=== PATIENT | male | born 1980 | race Caucasian/White ===

== ENCOUNTER 2023-06-02 10:25 | Emergency (ER) | payer OTHER, SELFPAY ==
[2023-06-02 10:26] VITALS: BP 103/88; PULSE 89; RESP 18; TEMP 35.5; O2SAT 93; BMI 34.4
--- NOTE | 2023-06-02 10:47 | CT_ITS ---
INDICATION: seizure EXAMINATION: CT BRAIN - CT Head or Brain W/O Contrast Injection TECHNIQUE: Multiple axial images were obtained of the head without intravenous contrast. A radiation dose optimization technique was used for this scan. IV Contrast dosage and agent: None. RADIATION DOSAGE (If Supplied By Facility): CTDIvol = ( 44.99 ) mGy, DLP = ( 812.98 ) mGycm COMPARISON: FINDINGS: BRAIN PARENCHYMA: No intra- or extra-axial hemorrhage. No evidence of acute infarct. No intracranial mass or mass effect. There is preservation of the patel/white matter interface. Posterior fossa structures are unremarkable. CSF SPACES: Appropriate for age. No hydrocephalus. Basal cisterns are patent. CALVARIUM, SKULL BASE, PARANASAL SINUSES AND MASTOID AIR CELLS: Clear. No discrete lytic or blastic abnormalities. ORBITS: Both globes, extraocular muscles, optic nerves and retrobulbar fat appear unremarkable. ASPECTS Score for Acute Strokes: 10 CT/Brain/Head without Contrast IMPRESSION: Negative Brain CT without contrast. Electronically Signed: Osman Loera MD at 11:51 EDT ,
--- NOTE | 2023-06-02 10:48 | EX.ED.DYSGE1 ---
HPI History of Present Illness Chief Complaint: General Illness Informant: patient and PCP Narrative Narrative: 42-year-old male presenting to the emergency department chief complaint of syncope versus seizure. Patient has not been feeling well over the past several days noting lower extremity myalgias and a headache nonproductive cough. He states that last night he was sleeping in another bed from his because he has been ill. Due to cough he decided to take a shower. He states he remembers getting into the shower and before he could adjust the temperature noted that things started to get very black in his field of vision. He states that he found himself starting to lose consciousness but recalled twitching and knocking things over in the shower. He states that he woke up on the ground. No loss of bowel or bladder control. He states he did not bite his tongue. He states that he felt very nauseated after the event. He subsequently went back to bed and slept into this morning when he discussed with his . He took a home COVID-19 test which was positive. He states now he feels very good, much better than the past several days. He notes a slight headache. He states that had he not tested positive for COVID-19 he would have gone to work this afternoon. He has been started on Wellbutrin in the past several months and had his dose increased to 300 mg once a day in the past 5 weeks roughly. He states he also began Ambien. He states that he had a simple febrile seizure when he was a child. [facility] Medical History (Updated 06/02/23 @ 12:[address] Demarco Melgoza DO) Depression Insomnia Allergy/AdvReac Type Severity Reaction Status Date / Time No Known Allergies Allergy Verified 06/02/23 10:26 Social History Smoking Status: Unknown if ever smoked ROS ROS ED ROS Narrative Syncope versus seizure during the night Constitutional Constitutional ED: Denies chills, fever(s) or weight loss Eyes Eyes: Denies blurry vision, change in vision or diplopia ENT ENT ED: Denies ear pain, rhinorrhea or sore throat Cardiovascular Cardiovascular: Reports other; Denies chest pain, orthopnea, palpitations or racing heartbeat Respiratory/Chest Respiratory/Chest: Reports cough; Denies dyspnea or orthopnea Gastrointestinal Gastrointestinal: Reports nausea; Denies abdominal pain, diarrhea or vomiting Genitourinary Genitourinary ED: Denies dysuria, hematuria or urinary frequency Musculoskeletal Musculoskeletal: Reports myalgias; Denies arthralgias, back pain or neck pain Integumentary Denies abscess or rash Neurologic Neurologic: Reports headache(s); Denies weakness Psychiatric Psychiatric: Denies anxiety, depression, suicidal ideation or suicidal thoughts Endocrine Endocrinology: Denies polydipsia, polyphagia or polyuria Allergic/Immunologic Allergic/Immunologic ED: Denies mouth swelling, tongue swelling or urticaria EXAM Physical Exam Const Vital Signs: 06/02/23 10:26 06/02/23 11:03 Temperature 96 F L Temperature Source Temporal Pulse Rate 89 Respiratory Rate 18 Respiratory Effort Normal Non-Labored Respiratory Pattern Normal Blood Pressure 103/88 H Blood Pressure Mean 93 Pulse Ox 93 Oxygen Delivery Method Room Air Positive well nourished and well developed General Appearance ED: well developed HEENT Reports normocephalic, head/scalp atraumatic and moist mucous membranes Eyes PERRL and EOMs intact bilaterally Neck no lymphadenopathy, supple and no JVD Resp normal respiratory effort and clear to auscultation bilaterally Cardio regular rate, regular rhythm and no murmurs GI normal to inspection, nondistended, normoactive bowel sounds and non-tender Palpation: soft Back/Spine no CVA tenderness and normal ROM Extremity normal to inspection General Extremety ED: Negative for edema General Extremity: Negative for edema Neuro oriented x3 and CN's II-XII intact bilaterally Sensorium / Orientation: alert Motor Exam: strength 5/5 throughout Psych mental status grossly normal Mood & Affect: Negative for depressed or tearful Skin no rashes or lesions noted and no wounds MDM MDM MDM Narrative Medical decision making narrative: CBC BMP is within normal limits. Glucose noted to be 132 however. Liver enzyme. Alcohol is negative troponin is negative. My independent interpretation of the single view chest x-ray is no acute process. Noncontrasted head CT shows no acute process. Clinically I cannot distinguish if this was a seizure versus syncope. Patient was discussed with his primary care doctor. We will have him discontinue his Wellbutrin. He will follow-up in the office return if worsening or concerns Lab Data Attestation: I reviewed the patient's lab results. Labs: Laboratory Results - last 24 hr 06/02/23 11:00 WBC 6.4 RBC 5.19 Hgb 16.2 Hct 47.8 MCV 92.1 MCH 31.2 MCHC 33.9 RDW Std Deviation 43.0 RDW Coeff of Taras 12.6 Plt Count 140 L MPV 11.3 Immature Gran % (Auto) 0.300 Neut % (Auto) 83.0 H Lymph % (Auto) 6.1 L [place] % (Auto) 10.3 H Eos % (Auto) 0.0 Baso % (Auto) 0.3 Absolute Neuts (auto) 5.3 Absolute Lymphs (auto) 0.39 L Nucleated RBC % 0 Differential Comment SCANNED Sodium 135 L Potassium 3.8 Chloride 106 Carbon Dioxide 26.0 Anion Gap 3 L BUN 18 Creatinine 1.20 Estim Creat Clear Calc 84.54 Est GFR (MDRD) Af Amer 85 Est GFR (MDRD) Non-Af 70 BUN/Creatinine Ratio 15.0 Glucose 132 H Calcium 9.1 Total Bilirubin 0.50 AST 14 L ALT 25 Alkaline Phosphatase 75 Troponin I High Sens 4 Total Protein 7.8 Albumin 4.0 Globulin 3.8 Albumin/Globulin Ratio 1.1 Ethyl Alcohol < 3.0 Radiography Diagnostic Testing: Clinical Impression(s) from Imaging Studies Brain CT 06/02/23 10:47 IMPRESSION: Negative Brain CT without contrast. Electronically Signed: Osman Loera MD at 11:51 EDT , Chest X-Ray 06/02/23 11:35 IMPRESSION: No radiographic evidence of acute cardiopulmonary disease. Electronically Signed: Osman Loera MD at 11:52 EDT , EKG Initial EKG: Attestation: I personally reviewed and interpreted this EKG as follows: Comments: Normal sinus rhythm with a ventricular rate of 79 bpm. No definitive features of ACS noted. No concerning features of preexcitation are seen. QTc interval measured at 440 Discharge Plan Triage Chief Complaint: General Illness ED Provider: Demarco Melgoza Dx/Rx/DC Orders Clinical Impression: COVID-19, Unresponsive episode Primary Care Provider: Ligia Perry Referrals: Ligia Perry MD [Primary Care Provider] - Keep Chu appointment Disposition Disposition: Home, Self Care
--- NOTE | 2023-06-02 10:50 | NURSING ---
NO OLD EKG
[2023-06-02 11:15] LABS: Absolute Lymphocyte Count 0.39 X10^3/uL (0.83-4.51); Absolute Neutrophil Count 5.3 X10^3/uL (2.0-7.7); Basophil# 0.02 X10^3/uL; Basophil% 0.3 % (0-1); Hematocrit 47.8 % (40-54); Hemoglobin 16.2 g/dL (13.0-16.5); Lymphocyte # 0.39 X10^3/ul (0.83-4.51); Lymphocyte % 6.1 % (19-41); Mean Corp Hgb Conc 33.9 g/dL (32-36); Mean Corpuscular Hgb 31.2 pg (27.0-32.0); Mean Corpuscular Volume 92.1 fL (80-94); Mean Platelet Vol. 11.3 fl (6.2-12.0); Monocyte# 0.66 X10^3/uL; Monocyte% 10.3 % (0-10); NRBC Flagged by Analyzer 0 % (0-5); Neutrophil # 5.32 X10^3/uL (2.7-7.7); POSITIVE DIFFERENTIAL YES; Platelet Count 140 K/mm3 (150-450); RBC Distribution Width CV 12.6 % (11.6-14.6); Red Blood Count 5.19 M/mm3 (4.6-6.2); White Blood Count 6.4 K/mm3 (4.4-11.0)
[2023-06-02 11:22] LABS: Differential Indicated SCAN CRITERIA MET
[2023-06-02 11:28] LABS: ALB/GLOB Ratio 1.1 RATIO (0.9-2.4); AST(SGOT) 14 U/L (15-37); Alanine Aminotransfer ALT/SGPT 25 U/L (16-61); Alkaline Phosphatase 75 U/L (45-117); Anion Gap 3 (5-15); BUN 18 mg/dL (7-18); Calcium,Total 9.1 mg/dL (8.5-10.1); Chloride 106 mmol/L (98-107); EST Glomerular Filtration Rate 70 mL/min (>60); Est Glom Filt Rate - Afr Amer 85 mL/min (>60); Estimated Creatinine Clearance 84.54 ml/min; Globulin 3.8 g/dL (2.2-4.2); Glucose 132 mg/dL (74-106); Potassium 3.8 mmol/L (3.5-5.1); Protein, Total 7.8 g/dL (6.4-8.2); Sodium Level 135 mmol/L (136-145); Troponin-I HS 4 pg/mL (3.0-78.0)
[2023-06-02 11:34] LABS: Differential Comment SCANNED
--- NOTE | 2023-06-02 11:35 | RAD_ITS ---
INDICATION: covid 19 infection syncope EXAMINATION/TECHNIQUE: X-RAY - XR Chest 1 View COMPARISON: FINDINGS: LINES/DEVICES: None. LUNGS: No consolidation, edema or effusion. No pneumothorax. MEDIASTINUM AND CARDIOVASCULAR STRUCTURES: Cardiac silhouette not enlarged. Central airways and mediastinal contour are unremarkable. BONES AND SOFT TISSUES: Unremarkable. RAD/Chest 1 View (Portable) IMPRESSION: No radiographic evidence of acute cardiopulmonary disease. Electronically Signed: Osman Loera MD at 11:52 EDT ,
[2023-06-02 11:42] LABS: Alcohol, Blood (Medical)-Serum < 3.0 mg/dL
[2023-06-02 12:54] VITALS: BP 123/72; PULSE 86; RESP 14; O2SAT 99
== END 2023-06-02 12:55 | disposition home or self-care (01) ==
PROVIDERS: Emergency Provider Emergency Medicine; PCP Internal Medicine; Visit Provider Emergency Medicine
DX: U07.1 COVID-19 (principal); R40.4 Transient alteration of awareness; F32.A Depression, unspecified
CPT/HCPCS: 70450; 71045; 80053; 82077; 84484; 85025; 93005; 99284

== ENCOUNTER → 2024-10-30 | Outpatient (CLI) | payer OTHER, SELFPAY ==
--- NOTE | 2024-10-30 07:23 | US_ITS ---
EXAM: US Abdomen Complete CLINICAL INDICATION: STAT NO ELASTOGRAPHY; GENERALIZED ABD PAIN, MARKEDLY ELEVATED LF TECHNIQUE: Real-time ultrasound of the abdomen with image documentation. COMPARISON: No relevant prior studies available. FINDINGS: LIVER: Liver measures up to 17.3 cm. Fatty liver. No intrahepatic bile duct dilation. GALLBLADDER: Negative García's sign was reported by the [employer] architect. No gallstones. COMMON BILE DUCT: Unremarkable as visualized. No stones. No dilation. Common bile duct measures 0.5 cm in diameter. PANCREAS: Unremarkable as visualized. KIDNEYS: Unremarkable. No stones. No hydronephrosis. The right kidney measures 12.5 x 6.0 x 6.8 cm. The left kidney measures 11.6 x 6.0 x 6.0 cm. SPLEEN: Spleen measures up to 12.8 cm. AORTA: Unremarkable. No aneurysm. INFERIOR VENA CAVA: Unremarkable. US/Abdomen Complete IMPRESSION: Hepatomegaly with fatty infiltration. Reading Location: [facility]
[2024-10-30 08:37] LABS: International Normalized Ratio 0.9; Prothrombin Time (Protime)PT. 12.3 SECONDS (11.7-14.9)
[2024-10-30 08:38] LABS: Partial Thromboplast Time 26.4 Seconds (24.1-36.2)
[2024-10-30 09:47] LABS: Acetaminophen (Tylenol) Level < 5.0 ug/mL (8.0-19.0)
[2024-10-30 09:58] LABS: Iron 204 ug/dL (65-175); Iron Binding Capacity,Total 254 ug/dL (250-450); Iron Binding Capacity,Unsat 50 ug/dL (228-428); LDH 217 U/L (87-241); Magnesium 2.2 mg/dL (1.5-2.2); Phosphorus 4.4 mg/dL (2.7-4.5)
[2024-10-30 10:28] LABS: AST(SGOT) 162 U/L (<=37); Alanine Aminotransfer ALT/SGPT 947 U/L (<=46); Albumin, Serum 3.7 g/dL (3.5-5.0); Alkaline Phosphatase 157 U/L (40-129); Bilirubin, Direct 1.26 mg/dL (0.00-0.30); Ferritin 2705 ng/mL (37-417); Globulin 3.2 g/dL (2.2-4.2); Protein, Total 6.9 g/dL (5.9-8.4); Total Bilirubin 1.81 mg/dL (0.00-1.30)
[2024-10-31 11:08] LABS: ANTINUCLEAR ANTIBODIES DIRECT Negative (Negative)
== END | disposition home or self-care (01) ==
LOC: US 07:04
PROVIDERS: PCP Nurse Practitioner Family; Referring Provider Nurse Practitioner Family; Visit Provider Nurse Practitioner Family
DX: R10.9 Unspecified abdominal pain (principal); R94.5 Abnormal results of liver function studies
CPT/HCPCS: 36415; 76700; 80074; 80076; 80143; 82390; 82728; 82784; 82785; 82977; 83516; 83540; 83550; 83615; 83735; 84100; 85610; 85730; 86038; 86200; 86644; 86664; 86665